=== PATIENT | female | born 1975 | race Asian ===

== ENCOUNTER 2024-03-05 13:09 | Outpatient (CLI) | payer OTHER | END 2024-03-05 23:59 | disposition EMS.NT | LOC: EMS 13:09 | DX: S01.21XA Laceration without foreign body of nose, initial encounter (principal); W20.8XXA Other cause of strike by thrown, projected or falling object, initial encounter; Y92.009 Unspecified place in unspecified non-institutional (private) residence as the place of occurrence of the external cause ==